=== PATIENT | male | born 1990 | race Caucasian/White ===

== ENCOUNTER 2022-04-13 16:10 | Emergency (ER) | payer OTHER ==
[2022-04-13] MEDS ORDERED: diphenhydrAMINE 50 MG/ML SDV IVPUSH ONE (16:45)
[2022-04-13] MEDS ORDERED: Ketorolac 30 MG/ML SDV IVPUSH ONE (16:45)
[2022-04-13] MEDS ORDERED: Sodium Chloride 0.9% 10 ML Syringe FLUSH PRN (16:45)
[2022-04-13] MEDS ORDERED: Sodium Chloride 0.9% 1,000 ML IV STA (16:45)
[2022-04-13] MEDS ORDERED: Ondansetron 4 MG/2 ML SDV IVPUSH ONE (16:45)
[2022-04-13] MEDS ORDERED: HYDROmorphone 0.5 MG/0.5 ML Syringe IVPUSH ONE (16:45)
[2022-04-13] MEDS ORDERED: diphenhydrAMINE 50 MG/ML SDV ONE (17:37)
== END 2022-04-13 19:20 | disposition home or self-care (01) ==
LOC: JD.ED 16:10
DX: G43.909 Migraine, unspecified, not intractable, without status migrainosus (principal); F17.210 Nicotine dependence, cigarettes, uncomplicated
CPT/HCPCS: 70450; 96361; 96374; 96375; 99284; J1170; J1200; J1885; J2405; J3490; J7030